=== PATIENT | male | born 2000 | race Asian ===

== ENCOUNTER → 2020-01-14 | Outpatient (CLI) | payer OTHER ==
[2020-01-14 14:07] LABS: BASOPHIL % 0.9 % (0-2); PLATELET COUNT 214 x10^3mcL (130-400); RED CELL DISTRIBUTION WIDTH 13.3 % (11.5-14.5)
[2020-01-14 14:50] LABS: ALBUMIN 4.4 g/dL (3.4-5.0); ALKALINE PHOSPHATASE 67 U/L (46-116); ALT/SGPT 80 U/L (16-63); AST/SGOT 32 U/L (15-37); BILIRUBIN TOTAL 0.47 mg/dL (0.20-1.00); CALCIUM 9.2 mg/dL (8.5-10.1); CARBON DIOXIDE 31.9 mmol/L (21-32); CHLORIDE SERUM 104 mmol/L (98-107); CHOLESTEROL 151 mg/dL (<200); CHOLESTEROL/HDL RATIO 3.3; CREATININE SERUM 1.1 mg/dL (0.7-1.3); GFR1 > 60 mL/min; GLUCOSE SERUM 94 mg/dL (74-106); HDL CHOLESTEROL 46 mg/dL (40-60); SODIUM SERUM 143 mmol/L (136-145); TOTAL PROTEIN, SERUM 7.7 g/dL (6.4-8.2)
[2020-01-14 15:05] LABS: TRIGLYCERIDES 29 mg/dL (<150)
[2020-01-14 15:06] LABS: microscopic required? NO
[2020-01-14 15:13] LABS: UA SPECIFIC GRAVITY >=1.030 (1.005-1.035); urine erythrocyte NEGATIVE (NEGATIVE)
== END | disposition home or self-care (01) ==
LOC: LB 13:32
DX: Z00.00 Encounter for general adult medical examination without abnormal findings (principal); E66.9 Obesity, unspecified; R74.0 Nonspecific elevation of levels of transaminase and lactic acid dehydrogenase [LDH]
CPT/HCPCS: 87491; 87591